=== PATIENT | female | born 1995 | race Caucasian/White ===

== ENCOUNTER 2021-09-14 07:21 | Inpatient (IN) | payer BC, SELFPAY ==
[2021-09-14] VITALS (14 sets, daily range): BP systolic 112–132; BP diastolic 71–89; PULSE 83–124; RESP 12–20; TEMP 37.4; O2SAT 96–98; BMI 18.3
--- NOTE | 2021-09-14 07:35 | XRR_ITS ---
PROCEDURE INFORMATION: Exam: XR Left Femur Exam date and time: 09/14/2021 7:48 AM Age: 26 years old Clinical indication: Injury or trauma; Fall; Blunt trauma; Thigh or upper leg; Left TECHNIQUE: Imaging protocol: Radiologic exam of the Left femur. Views: 2 views. COMPARISON: No relevant prior studies available. FINDINGS: Bones/joints: There is a comminuted left intertrochanteric femur fracture with varus deformity. Soft tissues: Unremarkable. XR/XR femur LT min 2V* [id number] IMPRESSION: Comminuted intertrochanteric fracture.
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
[2021-09-14] MEDS: HYDROmorphone 1 mg/mL INJ 1 mL IVP (07:55)
[2021-09-14] MEDS: nicotine 14 mg Patch 1 PATCH TRANSDERMA (09:06)
--- NOTE | 2021-09-14 09:08 | PC.NURSE ---
Patient repositioned with towel roll for patient comfort. Call light within reach.
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
[2021-09-14 11:01] LABS: INR 1.16 (0.8-1.2); Partial Thromboplastin Time 22.7 SECONDS (23.9-36.7)
[2021-09-14 11:04] LABS: D Dimer 2.87 ug/mIFEU (0-0.59)
[2021-09-14 11:07] LABS: Fibrinogen 194 mg/dL (174-498)
[2021-09-14 11:11] LABS: Alcohol Level 137 mg/dL (0-10)
--- NOTE | 2021-09-14 11:20 | PC.NURSE ---
Patient tells RN that she has minor latex allergy/sensitivity, itching at times. RN obtained latex free cath from data warehouse manager RN.
--- NOTE | 2021-09-14 11:20 | PC.NURSE ---
Ortho reports that she can have the traction ems placed off once she goes to unit and has ross traction applied.
[2021-09-14 11:36] LABS: Platelet Count 221 10^3/cmm (130-400)
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
--- NOTE | 2021-09-14 11:53 | PC.NURSE ---
Patient provided with her lunch, patient asked to drink something and states she wants to wait on eating. Patient asked to rest.
[2021-09-14 12:03] LABS: Amphetamines Screen Urine Negative (Negative); Barbiturates Screen Urine Negative (Negative); Benzodiazepines Screen Urine Negative (Negative); Cocaine Screen Urine Positive (Negative); Opiate Screen Urine Positive (Negative); PCP Screen Urine Negative (Negative); THC Screen Urine Negative (Negative)
[2021-09-14] MEDS: sodium chloride 0.9% 1,000 ML 30 ML IV (12:53)
[2021-09-14] MEDS: enoxaparin 40 mg/0.4 mL Syringe SUBCUT (12:53)
[2021-09-14] MEDS: morphine 4 mg/mL SDV 1 mL 2 MG IVP ×3 (13:00→22:09)
[2021-09-14] MEDS: ALPRAZolam 0.5 mg Tablet PO (13:00)
--- NOTE | 2021-09-14 14:33 | PC.NURSE ---
Addendum entered by Arabella Lee RN 09/14/21 18:12: Assisted with placement of Conti Traction 5 pounds applied to immobilizer. Original Note: Patient arrived to unit via stretcher with femur fracture device to left leg/hip. Patient has intense pain that was alleviated with IV pain medication. Patient resting waiting on clarification for traction.
[2021-09-14] MEDS: HYDROmorphone 1 mg/mL INJ 1 mL 0.2 MG IVP ×2 (15:38→20:11)
[2021-09-15] VITALS (23 sets, daily range): BP systolic 106–131; BP diastolic 69–90; PULSE 62–110; RESP 12–20; TEMP 36.3–37.2; O2SAT 96–100
--- NOTE | 2021-09-15 | SCC_ITS ---
Procedure done: Open reduction internal fixation lefthip with intramedullary device 95.7 seconds of fluoroscopic guidance, for a cumulative dose of 7.50 mGy, was provided to Dr. Enciso by the radiology department. C-arm images of the LEFT hip were saved for the patient's permanent record. [facility]ITAL[facility]
[2021-09-15] MEDS: HYDROmorphone 1 mg/mL INJ 1 mL 0.2 MG IVP (00:23)
[2021-09-15] MEDS: ALPRAZolam 0.5 mg Tablet PO (00:24)
[2021-09-15] MEDS: ketorolac 30 mg/mL INJ 15 MG IVP (01:36)
[2021-09-15 05:27] LABS: Basophils # 0.1 10^3/uL (0.0-0.1); Basophils % 0.9 %; Eosinophils # 0.2 10^3/uL (0.0-0.8); Hematocrit 33.1 % (37.0-47.0); Hemoglobin 11.1 g/dL (11.5-15.3); Lymphocytes # 1.1 10^3/uL (0.8-4.8); Lymphocytes % 20.7 %; Mean Corpuscular HGB Conc 33.5 g/dL (30.0-36.0); Mean Corpuscular Hemoglobin 31.2 pg (28.0-34.0); Mean Platelet Volume 11.3 fL (7.4-10.4); Monocytes % 18.3 %; Neutrophils # 3.05 10^3/uL (1.8-7.7); Neutrophils % 56.9 %; Nucleated Red Blood Cells % 0 %; Platelet Count 185 10^3/cmm (130-400); Red Blood Count 3.56 10^6/uL (4.1-5.3); Red Cell Distribution Width 13.1 % (12.1-15.1); White Blood Count 5.4 10^3/uL (4.0-10.0)
[2021-09-15 05:50] LABS: Anion Gap 12.5 (5-19); Blood Urea Nitrogen 6 mg/dL (6-20); Calcium 8.6 mg/dL (8.5-10.5); Carbon Dioxide 23 mmol/L (22-29); Chloride 104 mmol/L (98-107); Glomerular Filtration Rate 151.6 mL/min (90-130); Glucose 91 mg/dL (65-115); Magnesium 1.9 mg/dL (1.7-2.3); Osmolality Calculated 279 mOsm/kg (285-295); Potassium 3.5 mmol/L (3.5-5.1); Sodium 136 mmol/L (136-145)
[2021-09-15 05:52] LABS: Creatine Phosphokinase 318 U/L (26-192)
[2021-09-15 05:53] LABS: Lactate Dehydrogenase 232 U/L (135-214)
[2021-09-15] MEDS: morphine 4 mg/mL SDV 1 mL 2 MG IVP ×2 (06:31→21:38)
--- NOTE | 2021-09-15 07:35 | PC.NURSE ---
patient taken off unit via bed by surgery RN. jewelry removed, placed in labled cup, and placed on window sill in patients room.
--- NOTE | 2021-09-15 07:51 | ANES.PREANE2 ---
Pre-Anesthetic Assessment Height/Weight: Height 1.57 m Weight 45.359 kg Temp Pulse Resp BP Pulse Ox 98.3 F 72 20 H 107/75 98 09/15/21 04:00 09/15/21 04:00 09/15/21 06:31 09/15/21 04:00 09/15/21 04:00 Preop Diagnosis: Left subtroch femur fracture Operation Date: 09/15/21 09:15 Proposed Procedures p Left Gamma Nail Femur(Left) - Poncho Enciso MD Familial anesthetic complications: Mother has PONV Was Beta Gayathri taken within 24 hours: N/A Was Clonidine taken within 24 hours: N/A Last intake: > 8hrs Social Vapes, U tox positive for Opiates, cocaine, and alcohol Exam alert, oriented x 3, clear to auscultation bilaterally and regular rate & rhythm Airway Mallampati: Class I Dentition: chipped (front L) Pulmonary None reported CV/HEM None reported None reported Hepatic None reported GI None reported Metabolic None reported Musc/skel None reported Neuropsych None reported Anesthetic Plan ASA status: 1 Anesthesia: General Risk of > 500 ml blood loss (7ml/kg in children): No Medications/Allergies Home Medications Medication Instructions Recorded Confirmed Last Taken Type tizanidine 2 mg tablet 2 mg PO BEDTIME 09/14/21 09/14/21 Unknown History Allergies Allergy/AdvReac Type Severity Reaction Status Date / Time latex Allergy ADR-Itching Verified 09/14/21 11:19 ondansetron [From Zofran] Allergy Unknown Verified 09/14/21 10:05 Penicillins Allergy Unknown Verified 09/14/21 10:05 Current Medications Generic Name Dose Route Start Last Admin Trade Name Hectorq PRN Reason Stop Dose Admin Alprazolam 0.5 mg 09/14/21 11:26 09/15/21 00:24 Alprazolam 0.5 Mg Tablet PO 0.5 mg Q6H PRN Administration AGITATION Hydromorphone HCl 0.2 mg 09/14/21 11:26 09/15/21 00:23 Hydromorphone 1 Mg/Ml Inj 1 Ml IVP 0.2 mg Q4H PRN Administration leg pain Sodium Chloride 1,000 mls @ 30 mls/hr 09/14/21 11:26 09/14/21 12:53 Sodium Chloride 0.9% IV 30 mls/hr .Q24H AUBRIE Administration Ketorolac Tromethamine 15 mg 09/15/21 01:30 09/15/21 01:36 Ketorolac 30 Mg/Ml Inj IVP 09/20/21 01:29 15 mg Q8H AUBRIE Administration Morphine Sulfate 2 mg 09/14/21 10:16 09/15/21 06:31 Morphine 4 Mg/Ml Sdv 1 Ml IVP 2 mg Q4H PRN Administration leg pain PFSH Anesthesia Medical History No pertinent past medical history Surgical History No pertinent past surgical history Family History Denies family history of Clotting disorder Social History Alcohol intake: current Alcohol intake frequency: holidays/special occasions only Housing: House Data Anesthesia : 09/15/21 04:57 09/15/21 04:57 Short CBC 09/14/21 09/15/21 Range/Units 10:39 04:57 WBC 5.4 (4.0-10.0) 10^3/uL Hgb 11.1 L (11.5-15.3) g/dL Hct 33.1 L (37.0-47.0) % MCV 93.0 (81-99) fl Plt Count 221 185 (130-400) 10^3/cmm Neut % (Auto) 56.9 % Neut # (Auto) 3.05 (1.8-7.7) 10^3/uL BMP 09/15/21 04:57 Sodium 136 Potassium 3.5 Chloride 104 Carbon Dioxide 23 BUN 6 Creatinine 0.5 Glucose 91 Calcium 8.6 Cardiac Enzymes 09/15/21 Range/Units 04:57 Creatine Kinase 318 H (26-192) U/L Coags 09/14/21 10:39 PT 15.20 H INR 1.16 APTT 22.7 L Fibrinogen 194 D-Dimer 2.87 H Cardiac Studies: No Data to Display
[2021-09-15] MEDS: sodium chloride 0.9% 1,000 ML 30 ML IV (08:06)
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
--- NOTE | 2021-09-15 09:59 | XR_ITS ---
WS: [id number] C-ARM RADIOGRAPHS LEFT HIP; 4 IMAGES HISTORY: OR PICS COMPARISON: 09/14/2021 Intraoperative imaging during fixation of a proximal LEFT femur fracture. Gamma nail and short intram edullary darian stabilizes a fracture in good position as seen on the limited images. XR/XR hip LT 1V wo/w pel [id number] IMPRESSION: Intraoperative imaging during fixation proximal LEFT femur fracture.
[2021-09-15] MEDS: meperidine 50 mg/mL INJ 12.5 MG IVP (10:19)
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
[2021-09-15] MEDS: acetaminophen 500 mg Tablet 1000 MG PO ×2 (11:03→18:04)
[2021-09-15] MEDS: oxyCODONE 5 mg IR Tab/Cap PO ×4 (11:03→23:46)
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
[2021-09-15] MEDS: sodium chloride 0.9% 1,000 ML 60 ML IV (15:47)
[2021-09-15] MEDS: tizanidine 4 mg Tablet 2 MG PO (19:44)
[2021-09-16] VITALS (7 sets, daily range): BP systolic 108–120; BP diastolic 68–72; PULSE 93–100; RESP 13–18; TEMP 37.1–37.7; O2SAT 97–99
[2021-09-16] MEDS: acetaminophen 500 mg Tablet 1000 MG PO ×2 (02:29→11:52)
[2021-09-16] MEDS: oxyCODONE 5 mg IR Tab/Cap PO ×3 (04:13→11:58)
[2021-09-16 04:36] LABS: Basophils % 0.6 %; Eosinophils # 0.2 10^3/uL (0.0-0.8); Eosinophils % 2.8 %; Hematocrit 27.3 % (37.0-47.0); Hemoglobin 9.1 g/dL (11.5-15.3); Lymphocytes # 0.7 10^3/uL (0.8-4.8); Lymphocytes % 12.3 %; Mean Corpuscular HGB Conc 33.3 g/dL (30.0-36.0); Mean Corpuscular Hemoglobin 30.8 pg (28.0-34.0); Mean Corpuscular Volume 92.5 fl (81-99); Mean Platelet Volume 11.5 fL (7.4-10.4); Monocytes # 0.7 10^3/uL (0.2-0.9); Monocytes % 13.8 %; Neutrophils # 3.76 10^3/uL (1.8-7.7); Neutrophils % 70.1 %; Nucleated Red Blood Cells % 0 %; Platelet Count 161 10^3/cmm (130-400); Red Blood Count 2.95 10^6/uL (4.1-5.3); Red Cell Distribution Width 12.9 % (12.1-15.1); White Blood Count 5.4 10^3/uL (4.0-10.0)
[2021-09-16 05:03] LABS: Anion Gap 12.5 (5-19); Blood Urea Nitrogen 6 mg/dL (6-20); Calcium 8.3 mg/dL (8.5-10.5); Carbon Dioxide 22 mmol/L (22-29); Chloride 104 mmol/L (98-107); Glomerular Filtration Rate 122.8 mL/min (90-130); Glucose 113 mg/dL (65-115); Osmolality Calculated 278 mOsm/kg (285-295); Potassium 3.5 mmol/L (3.5-5.1); Sodium 135 mmol/L (136-145)
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
--- NOTE | 2021-09-16 11:16 | P.DS_ITS ---
Discharge Providers Date of Admission: 09/14/21 09:53 Date of Discharge: September 16, 2021 Attending Provider at Admission: Tessa Medina MD Attending Provider at Discharge: Tessa Medina MD Diagnoses at Discharge Discharge Diagnosis (1) Closed left subtrochanteric femur fracture: Status: Acute (2) Femur fracture, left: Status: Acute Reason for Visit Reason for Visit: LEFT FEMUR PAIN S/P FALL Hospital Course Hospital Course Young female who sustained a fall while she was camping with her friends at a young, she was brought in by the ambulance, she was diagnosed with left hip fracture, Dr. Enciso was consulted, status post open reduction internal fixation with intramedullary device, postoperatively patient did very well with physical therapist, she is walking with the help of a walker, she is being discharged with outpatient follow-up with orthopedics clinic in [facility] clinic we will fax physician referral form as well. I will give her oxycodone, bowel regimen. I have given her work and school note as well. I have talked to her mother to get her postop follow-up appointment with PCP. No postop complications. Physical Exam Narrative: Postoperatively patient is doing fine Able to walk with the help of walker Euvolemic Lean appearance Saturating well on room air Nonfocal neuro exam No vascular compromise of lower extremities She is awake and alert Abdomen soft No active chest pain Urinary Catheter Management: Taveras: Cath Placed During This Visit: yes Reason for Continuing Indwelling Catheter: Acute Urinary Retention or Obstruction Urinary Catheter Date of Insertion: 09/14/21 Urinary Catheter Time of Insertion: 11:00 Discharge Data Studies Completed and Pending Completed Studies During Hospitalization Category Date Time Status XR femur LT min 2V* [id number] Stat Exams 09/14/21 07:35 Completed Pending at discharge Category Date Time Status XR hip LT 1V wo/w pel [id number] Routine Exams 09/15/21 09:59 Taken Radiology Impressions Femur X-Ray 09/14/21 07:35 IMPRESSION: Comminuted intertrochanteric fracture. Laboratory Results WBC 5.4 10^3/uL (4.0-10.0) 09/16/21 04:25 RBC 2.95 10^6/uL (4.1-5.3) L 09/16/21 04:25 Hgb 9.1 g/dL (11.5-15.3) L 09/16/21 04:25 Hct 27.3 % (37.0-47.0) L 09/16/21 04:25 MCV 92.5 fl (81-99) 09/16/21 04:25 MCH 30.8 pg (28.0-34.0) 09/16/21 04:25 MCHC 33.3 g/dL (30.0-36.0) 09/16/21 04:25 RDW 12.9 % (12.1-15.1) 09/16/21 04:25 Plt Count 161 10^3/cmm (130-400) 09/16/21 04:25 MPV 11.5 fL (7.4-10.4) H 09/16/21 04:25 Neut % (Auto) 70.1 % 09/16/21 04:25 Lymph % (Auto) 12.3 % 09/16/21 04:25 [place] % (Auto) 13.8 % 09/16/21 04:25 Eos % (Auto) 2.8 % 09/16/21 04:25 Baso % (Auto) 0.6 % 09/16/21 04:25 Neut # (Auto) 3.76 10^3/uL (1.8-7.7) 09/16/21 04:25 Lymph # (Auto) 0.7 10^3/uL (0.8-4.8) L 09/16/21 04:25 [place] # (Auto) 0.7 10^3/uL (0.2-0.9) 09/16/21 04:25 Eos # (Auto) 0.2 10^3/uL (0.0-0.8) 09/16/21 04:25 Baso # (Auto) 0.0 10^3/uL (0.0-0.1) 09/16/21 04:25 Nucleated RBC % (auto) 0 % 09/16/21 04:25 Nucleated RBCs # 0.0 /100WBC 09/16/21 04:25 PT 15.20 SECONDS (12.1-14.9) H 09/14/21 10:39 INR 1.16 (0.8-1.2) 09/14/21 10:39 APTT 22.7 SECONDS (23.9-36.7) L 09/14/21 10:39 Fibrinogen 194 mg/dL (174-498) 09/14/21 10:39 D-Dimer 2.87 ug/mIFEU (0-0.59) H 09/14/21 10:39 Sodium 135 mmol/L (136-145) L 09/16/21 04:25 Potassium 3.5 mmol/L (3.5-5.1) 09/16/21 04:25 Chloride 104 mmol/L (98-107) 09/16/21 04:25 Carbon Dioxide 22 mmol/L (22-29) 09/16/21 04:25 Anion Gap 12.5 (5-19) 09/16/21 04:25 BUN 6 mg/dL (6-20) 09/16/21 04:25 Creatinine 0.6 mg/dL (0.5-0.9) 09/16/21 04:25 GFR Calculation 122.8 mL/min (90-130) 09/16/21 04:25 Glucose 113 mg/dL (65-115) 09/16/21 04:25 Calculated Osmolality 278 mOsm/kg (285-295) L 09/16/21 04:25 Calcium 8.3 mg/dL (8.5-10.5) L 09/16/21 04:25 Magnesium 1.9 mg/dL (1.7-2.3) 09/15/21 04:57 Lactate Dehydrogenase 232 U/L (135-214) H 09/15/21 04:57 Creatine Kinase 318 U/L (26-192) H 09/15/21 04:57 Urine Opiates Screen Positive ng/mL (Negative) H 09/14/21 11:00 Ur Barbiturates Screen Negative ng/mL (Negative) 09/14/21 11:00 Ur Phencyclidine Scrn Negative ng/mL (Negative) 09/14/21 11:00 Ur Amphetamines Screen Negative ng/mL (Negative) 09/14/21 11:00 U Benzodiazepines Scrn Negative ng/mL (Negative) 09/14/21 11:00 Urine Cocaine Screen Positive ng/mL (Negative) H 09/14/21 11:00 U Marijuana (THC) Screen Negative ng/mL (Negative) 09/14/21 11:00 Ethyl Alcohol 137 mg/dL (0-10) H 09/14/21 10:39 Vitals Last Vital Signs Temp 98.8 F 09/16/21 07:45 Pulse 93 09/16/21 07:45 Resp 13 09/16/21 08:17 BP 108/70 09/16/21 07:45 Pulse Ox 99 09/16/21 08:17 Discharge Plan Discharge Patient Disposition: Home Condition: Stable Prescriptions: New oxycodone 5 mg tablet 5 mg PO Q8H PRN (Reason: pain) Qty: 20 0RF sennosides-docusate sodium [Senna-S] 8.6-50 mg tablet 1 tab-cap PO BID PRN (Reason: constipation) Qty: 60 0RF aspirin 325 mg tablet 325 mg PO DAILY Qty: 14 0RF Continued tizanidine 2 mg tablet 2 mg PO BEDTIME 0RF Discharge Orders: Discharge Order (Routine); Ordered 09/16/21 Ordered By: Tessa Medina Other Ambulatory Orders: DME: Preet (Order) Location: None Selected Ordered By: Poncho Enciso Referrals: kendra montez [Other] - 1-3 days (Patient will need to establish care with orthopedics after her surgery) Discharge Diet: Regular Discharge Activity: As per PT/OT instructions Patient Instructions: Opioid Safety Discharge Attestations Time Spent in Discharge Care*: less than 30 min Quality Metrics Clinical Quality Measures [ No reported AMI, CVA or VTE this stay] Coding Level of Care Code Acute Chg FW DC note Diagnoses Closed left subtrochanteric femur fracture S72.22XA Femur fracture, left S72.92XA
[2021-09-16] MEDS: enoxaparin 40 mg/0.4 mL Syringe SUBCUT (11:52)
[2021-09-16] MEDS: sodium chloride 0.9% 1,000 ML 60 ML IV (11:52)
== END 2021-09-16 13:39 | disposition home or self-care (01) | DRG 482 ==
LOC: ER 09:20 → MEDSURG 10:55
PROVIDERS: Orthopaedic Surgery; Admitting Provider Internal Medicine; Emergency Provider Emergency Medicine; Visit Provider Internal Medicine
PROC: 0QS706Z Reposition Left Upper Femur with Intramedullary Internal Fixation Device, Open Approach (ICD-10-PCS; principal; 2021-09-15 08:30)
DX: S72.22XA Displaced subtrochanteric fracture of left femur, initial encounter for closed fracture (principal); W03.XXXA Other fall on same level due to collision with another person, initial encounter; Y92.833 Campsite as the place of occurrence of the external cause; E86.0 Dehydration; R00.0 Tachycardia, unspecified; F10.929 Alcohol use, unspecified with intoxication, unspecified; Y90.6 Blood alcohol level of 120-199 mg/100 ml
CPT/HCPCS: 36415; 51702; 73501; 73552; 76000; 80048; 80306; 80307; 82550; 83615; 83735; 85025; 85049; 85378; 85384; 85610; 85730; 96372; 96374; 97110; 97116; 97161; 97165; 97530; 99285; C1713; J0690; J1170; J1650; J1885; J2175; J2250; J2270; J2704; J3010; J7030